=== PATIENT | male | born 1965 | race Caucasian/White ===

== ENCOUNTER 2016-11-25 14:48 | Emergency (ER) | payer OTHER ==
[2016-11-25] MEDS ORDERED: METHYLPREDNISOLONE SOD SUCC/PF 40 MG/ML VIAL IM ONE (14:54)
[2016-11-25] MEDS ORDERED: ALBUTEROL SULFATE 2.5 MG/0.5 ML VIAL.NEB IH ONE ×2 (14:54→14:58)
[2016-11-25] MEDS ORDERED: METHYLPREDNISOLONE SOD SUCC/PF 40 MG/ML VIAL ONE (14:58)
--- NOTE | 2016-11-25 15:05 | ERNOTE ---
Medical Problem HPI - Narrative Date of Service: 11/25/16 - General Chief Complaint: General Assessment Source: patient Exam Limitations: no limitations - Immun/Allergies/Home Medications Immunizations: IMMUNIZATION HX Immunizations Up to Date Yes History of Influenza Vaccine No Hx Pneumococcal Vaccination No Allergies/Adverse Reactions: Allergies No Known Allergies Allergy (Unverified 10/07/16 08:23) Home Medications: HOME MEDICATIONS Enalapril Maleate [Vasotec] 1 PO DAILY 07/19/16 [Last Taken Unknown] Hydrochlorothiazide [Hydrodiuril] 1 PO DAILY 07/19/16 [Last Taken Unknown] Ibuprofen 10/07/16 [Last Taken Unknown] Albuterol Sulfate [Proair Respiclick] 90 mcg IH QID PRN #1 aer.pow.ba 11/25/16 [ Last Taken Unknown] Albuterol Sulfate [Ventolin Hfa] 2 puff IH Q4H PRN #1 inhaler 11/25/16 [Last Taken Unknown] predniSONE [Prednisone] 3 tab PO DAILY #9 tab 11/25/16 [Last Taken Unknown] - History of Present History Narrative: Pt. 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 Pt. denies any SOB, CP, NVD, eye pain, nasal irritation, or fever. Pt. denies any prehospital treatment but states that being out of the area has relieved some of the symptoms and he states he is improving. Pt. denies any exacerbation factors. Review of Systems - Review of Systems Constitutional: Present: no symptoms reported. Absent: recent illness, fever, chills, weakness, fatigue, malaise EYE: Present: no symptoms reported. Absent: eye pain, blurred vision, double vision, tearing ENT: Present: sore throat. Absent: nose pain, nose congestion, nasal drainage, throat swelling Respiratory: Present: no symptoms reported. Absent: shortness of breath, cough , wheezing Cardiology: Present: no symptoms reported. Absent: chest pain, palpitations, edema Gastrointestinal/Abdominal: Present: no symptoms reported. Absent: nausea, vomiting, diarrhea, abdominal pain Genitourinary: Present: no symptoms reported. Absent: pain, dysuria, decreased urinary output Musculoskeletal: Present: no symptoms reported. Absent: back pain, joint pain Skin: Present: no symptoms reported. Absent: rash, change in color Neurological: Present: no symptoms reported. Absent: headache, dizziness/light- headedness, numbness, tingling All Other Systems: All systems neg except as marked - Patient's Past Medical History Patient History - Medical: No pertinent hx Patient History - Cardiac/Respiratory: CHF, Hypertension Patient History - Cancer: No Hx of Cancer Patient History - Surgical Procedures: Other Patient History - Other: None - Social History Living Situations: home Abuse History: No History of abuse Psych History: No pertinent hx Smoking Status: Former smoker Have you smoked in the past 12 months: No Do you dip or chew tobacco: No Patient requests Smoking Cessation Consult: No Initiate information on Smoking Cessation: No Alcohol Use: rarely Drug Use: none - Immunizations Immunizations Up to Date: Yes Hx Pneumococcal Vaccination: No History of Influenza Vaccine: No Physical Exam - Physical Exam General Appearance: Present: wd/wn, alert, no apparent distress Eye Exam: Normal inspection: bilateral, PERRL: bilateral, EOMI: bilateral Ears, Nose, Throat: Present: normal ENT inspection, hearing grossly normal, normal pharynx. Absent: nasal congestion, sinus pain/drainage, pharyngeal erythema, pharyngeal swelling Neck: Present: normal inspection, nontender. Absent: lymphadenopathy (R), lymphadenopathy (L) Respiratory: Present: no respiratory distress, normal breath sounds, no accessory muscle use, chest nontender, lungs clear. 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 Absent: pallor, skin rash ED Progress - Date and Time Seen: Date and Time: 11/25/16 16:11 Pt. states is 100 percent better Educated pt. on the need to return if symptoms worsen. Monitored pt. for 2 hours without any adverse affects. - Results and Orders Patient's Lab Results:: I have reviewed the patient's lab results. Results and Orders: pao2 slightly decreased. but as expected for chronic fibrotic changes in the lung - Vital Signs Patient's Vital Signs:: I have reviewed the patient's vital signs. Vital Signs: Vital Signs 11/25/16 14:52 Temperature 36.7 C Pulse Rate 89 Respiratory 18 Rate O2 Sat by Pulse 97 Oximetry - X-Ray X-Ray #1 X-Ray: chest Interpretation: Reviewed by me X-ray Comments: WNL X-Ray #2 X-Ray: soft tissue neck Interpretation: Reviewed by me X-ray Comments: no acute. - Progress/Reassessment Chief Complaint: General Assessment Departure - Departure Clinical Impression: Accidental exposure to bleach Disposition: Home self-care Condition: Good Instructions: Chemical Inhalation Injury Additional Instructions: Please return if the symptoms return or you get short of breath. Wear mask when at risk for exposure to bleach. Follow up with primary provider in 2-3 days. Referrals: Melania Alegre CNP [Primary Care Provider] - Prescriptions: Albuterol Sulfate [Ventolin Hfa] 2 puff IH Q4H PRN #1 inhaler PRN Reason: Shortness Of Breath Albuterol Sulfate [Proair Respiclick] 90 mcg IH QID PRN #1 aer.pow.ba PRN Reason: Cough predniSONE [Prednisone] 3 tab PO DAILY #9 tab
[2016-11-25 15:15] LABS: Hematocrit 44.8 % (42.0-52.0); Mean Cell Volume 90.5 fl (78-100); Mean Corpuscular Hemoglobin 30.3 pg (27-31); Mean Corpuscular Hgb Conc 33.5 g/dl (32-36); Neutrophil # 6.1 K/mm3 (1.3-6.0); Platelet Count 264 K/mm3 (150-450); Red Blood Count 4.95 M/mm3 (4.7-6.0); Red Cell Distribution Width 12.4 % (11.5-14.0); White Blood Count 9.8 K/mm3 (4.0-10.5)
[2016-11-25 15:28] LABS: Albumin * 4.2 gm/dl (3.4-5.0); Anion Gap 13.5 mmol/L (6.8-13.8); BUN/Creatinine Ratio 14.4 (9.0-21.6); Bilirubin, Total 0.5 mg/dL (0.0-1.1); Ca. Corrected For Albumin 8.4 mg/dL (8.4-10.2); Calcium * 8.9 mg/dL (7.9-10.9); Carbon Dioxide 25.3 mmol/L (24-32.6); Potassium 3.8 mmol/L (3.4-4.6); Total Protein 8.2 gm/dL (6.2-8.2)
[2016-11-25 21:18] VITALS: BP 139/93
== END 2016-11-25 16:25 | disposition home or self-care (01) ==
LOC: ER 14:48
DX: Z57.5 Occupational exposure to toxic agents in other industries (principal); T54.91XA Toxic effect of unspecified corrosive substance, accidental (unintentional), initial encounter; Y92.63 Factory as the place of occurrence of the external cause

== ENCOUNTER 2016-11-27 00:46 | Observation (INO) | payer OTHER ==
[2016-11-27] MEDS ORDERED: ALBUTEROL SULFATE/IPRATROPIUM 3 ML NEBU IH ONE ×4 (00:54→01:17)
[2016-11-27] MEDS ORDERED: METHYLPREDNISOLONE SOD SUCC/PF 125 MG/2 ML VIAL IM ONE (00:55)
[2016-11-27] MEDS ORDERED: METHYLPREDNISOLONE SOD SUCC/PF 125 MG/2 ML VIAL ONE (01:00)
--- NOTE | 2016-11-27 01:04 | ERNOTE ---
Dyspnea - Date Date of Service: 11/27/16 - General Presenting Symptoms: difficulty of breathing Time Seen by Provider: 11/27/16 00:54 Source: patient Exam Limitations: no limitations - Immun/Allergies/Home Medications Immunizations: IMMUNIZATION HX Immunizations Up to Date Yes History of Influenza Vaccine No Hx Pneumococcal Vaccination No Allergies/Adverse Reactions: Allergies No Known Allergies Allergy (Unverified 10/07/16 08:23) Home Medications: HOME MEDICATIONS Enalapril Maleate [Vasotec] 1 PO DAILY 07/19/16 [Last Taken Unknown] Hydrochlorothiazide [Hydrodiuril] 1 PO DAILY 07/19/16 [Last Taken Unknown] Ibuprofen 10/07/16 [Last Taken Unknown] Albuterol Sulfate [Proair Respiclick] 90 mcg IH QID PRN #1 aer.pow.ba 11/25/16 [ Last Taken Unknown] Albuterol Sulfate [Ventolin Hfa] 2 puff IH Q4H PRN #1 inhaler 11/25/16 [Last Taken Unknown] predniSONE [Prednisone] 3 tab PO DAILY #9 tab 11/25/16 [Last Taken Unknown] - History of Present Illness Narrative: Patient was seen yesterday due to an exposure to liquid chlorine fumes. Patient was in an enclosed room for a prolonged period of time. Patient reported that he started coughing and having SOB. Patient was given Tx and was allow to go home. Patient today returns due to same problem. Patient reported that he failed to fill his prescription of inhaler as recommended due the side effect with his blood pressure. 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 Denies: upper resp illness, out of meds, sports/exercise, allergy to food, allergy to environment, allergy to unknown, emotionally upset Modifying Factors - (Improves): Reports: oxygen Modifying Factors (Worsens): Reports: nothing Associated Symptoms-Dyspnea: Reports: cough. Denies: fever/chills, sweating, chest pain/discomfort, palpitations, leg/calf pain, ankle/leg swelling, dizziness, lightheadedness, weakness, anxiety, tingling of hands/face, muscle spasms, loss of appetite Prior Treatment: Reports: recently seen - patient was seen yesterday for same problem. Review of Systems - Review of Systems Constitutional: Absent: fever, chills, diaphoresis, weakness, fatigue, malaise, weight loss, fussy, decreased activity level EYE: Present: no symptoms reported ENT: Present: no symptoms reported Respiratory: Present: shortness of breath, cough. Absent: stridor Cardiology: Present: no symptoms reported Gastrointestinal/Abdominal: Present: no symptoms reported Genitourinary: Present: no symptoms reported Musculoskeletal: Present: no symptoms reported Skin: Present: no symptoms reported Neurological: Present: no symptoms reported Endocrine: Present: no symptoms reported Hematologic/Lymphatic: Present: no symptoms reported Psych: Present: no symptoms reported All Other Systems: All systems neg except as marked - Patient's Past Medical History Patient History - Medical: No pertinent hx Patient History - Cardiac/Respiratory: CHF, Hypertension Patient History - Cancer: No Hx of Cancer Patient History - Surgical Procedures: Other Patient History - Other: None - Social History Living Situations: home Abuse History: No History of abuse Psych History: No pertinent hx Alcohol Use: rarely Drug Use: none - Immunizations Immunizations Up to Date: Yes Hx Pneumococcal Vaccination: No History of Influenza Vaccine: No Physical Exam - Physical Exam General Appearance: Present: wd/wn, alert, no apparent distress, obese Eye Exam: Normal inspection: bilateral, PERRL: bilateral, EOMI: bilateral Ears, Nose, Throat: Present: normal ENT inspection, hearing grossly normal, pharyngeal erythema, pharyngeal swelling Neck: Present: normal inspection, nontender Respiratory: Present: respiratory distress - mild, expiration (prolonged). Absent: chest tenderness, crackles, rales, rhonchi Cardiovascular/Chest: Present: regular rate, rhythm, no murmur, normal peripheral pulses Gastrointestinal/Abdominal: Present: normal bowel sounds, nontender, nondistended, soft, no organomegaly Back Exam: Present: normal inspection, normal range of motion, no CVA tenderness , no vertebral tenderness Extremity Exam: Present: normal inspection, non-tender, no edema, normal range of motion Neurological Exam: Present: alert, oriented, normal mood/affect, no motor/ sensory deficits Skin Exam: Present: normal color, warm/dry Lymphatic Exam: Present: no adenopathy ED Progress - Date and Time Seen: Date and Time: 11/27/16 01:29 Patient who did not follow medical treatment recommendation and comes due to SOB and Coughing. Patient found with and a Respiratory Alkalosis withe a Non AG Metabolic Acidosis. Patient will be place in hospital for observation and management of condition. 11/27/16 01:44 Case has been informed to Hospitalist KURTIS Hinojosa. - Results and Orders Patient's Lab Results:: I have reviewed the patient's lab results. Results and Orders: ABG: Respiratory Alkalosis with compensatory Metabolic Acidosis Respiratory Panel: Noticed - Vital Signs Patient's Vital Signs:: I have reviewed the patient's vital signs. Vital Signs: O2 Sat: 97% at RA HR: 108 - Sinus on monitor RR: 26 BP: Mild elevated on arrival. - X-Ray X-Ray #1 X-Ray: chest Interpretation: Interp. by me X-ray Comments: Increase markening of lung tissue, air trapping, no consolidates - Progress/Reassessment Progress:: Unchanged - Transfer of Care Expected Disposition: Admit Departure Clinical Impression: Pneumonitis due to fumes and vapors - Departure Disposition: [facility] Condition: Fair
[2016-11-27] MEDS ORDERED: NORMAL SALINE 2,000 ML IV ONE (01:46)
[2016-11-27] MEDS ORDERED: CODEINE PHOSPHATE/GUAIFENESIN 5 ML UDC PO ONE (01:49)
[2016-11-27] MEDS ORDERED: CODEINE PHOSPHATE/GUAIFENESIN 5 ML UDC ONE (01:51)
[2016-11-27] MEDS ORDERED: guaiFENesin/DEXTROMETHORPHAN 118 ML BTL PO PRN (03:10)
--- NOTE | 2016-11-27 03:40 | HP ---
<Bonnie Quiroz - Last Filed: 11/27/16 07:25> Chief Complaint - Chief Complaint Date of Service: 11/27/16 Time of Service: 03:12 Chief Complaint: 'SOB". Source of HPI- Pt; reliable, ER provider report. History of Present Illness: Mr. West is a 51-yr-old WM pt who has no pertinent medical history except for HTN. He presented to the [facility] ER on 11/25/16 with complaints of exposure to Chlorine gas/fumes at his place of employment. 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 He received treatment at the ER with Bronchodialator nebulized treatment and was under observation for roughly 2 hrs. His CXR did not have any acute findings and v.s remained stable. He felt better after treatment in the ER and he was discharged home on Albuterol neb treatments, an inhaler & Prednisone. Pt admits that he never filed the prescriptions as he was afraid of the effects of the nebulizer treatments he had at the ED. He reports having increasing shakiness and heart palpitations and therefore, was reluctant to continue with treatment. On the night of 11/26/16, he came back to the ED with the same complaints he had on 11/25/16 of increasing SOB and coughing. Even though there was no POX desaturations, he felt SOB and the treatment in ER with Albuterol did not improve his Dyspnea. The CXR obtained did not have acute findings. The ABGs showed Acute Compensated Respiratory Alcalosis. At the time of physical examination, pt is visibly SOB, is coughing constantly and is noted to have a hoarse voice. Pt will be admitted under observation status to ensure he does not suffer further airway limitation. - Patient's Past Medical History Patient History - Medical: No pertinent hx Patient History - Cardiac/Respiratory: Hypertension Patient History - Cancer: No Hx of Cancer Patient History - Surgical Procedures: Other Patient History - Other: None - Family History Mother Family History - Medical: No pertinent hx Family History - Cardiac/Respiratory: COPD Family History - Cancer: No pertinent family hx Father Family History - Medical: Family History - Cardiac/Respiratory: No pertinent hx Family History - Cancer: No pertinent family hx - Social History Living Situations: significant other Abuse History: No History of abuse Psych History: No pertinent hx Smoking Status: Never smoker Have you smoked in the past 12 months: No Do you dip or chew tobacco: Yes Alcohol Use: occasionally Drug Use: none - Immunizations Immunizations Up to Date: Yes Hx Pneumococcal Vaccination: No History of Influenza Vaccine: No Review Of Systems (GEN) - Review of Systems Generalized/Overall Review: Absent: Weakness, Chills, Fever, Malaise, Diaphoresis EENTM: Absent: Eye Pain, Blurred Vision, Tearing, Double Vision, Nose Congestion , Throat Pain Respiratory: Present: Cough, Shortness of Breath. Absent: Wheezing Cardiac: Absent: Chest Pain, Edema, Palpitations Abdominal: Absent: Nausea, Vomiting, Abdominal Pain, Constipation Genitourinary: Absent: Burning, Itching, Urgency, Hesitancy, Dribbling, Incontinent Musculoskeletal: Absent: Joint Pain, Back Pain, Muscle Pain, Neck Pain Neurological: Absent: Headache, Anxiety, Depressed, Emotional Problems Skin: Absent: Dryness, Lesions Endocrine: Absent: Intolerance to Cold, Intolerance to Heat, Increased Thirst Misc: All systems neg except as marked Immunizations: IMMUNIZATION HX Immunizations Up to Date Yes History of Influenza Vaccine No Hx Pneumococcal Vaccination No Allergies/Adverse Reactions: Allergies Allergy/AdvReac Type Severity Reaction Status Date / Time No Known Allergies Allergy Verified 11/27/16 02:56 Home Medications: HOME MEDICATIONS Enalapril Maleate [Vasotec] 30 mg PO DAILY 07/19/16 [Last Taken Unknown] Hydrochlorothiazide [Hydrodiuril] 1 tab PO DAILY 07/19/16 [Last Taken Unknown] Exam - Exam Vital Signs: Vital Signs - Last Taken Temp 36.4 C L 11/27/16 02:37 Pulse 94 11/27/16 02:37 Resp 16 11/27/16 02:37 BP 134/77 11/27/16 02:37 Pulse Ox 97 11/27/16 02:37 Constitutional: Present: Alert, Oriented x3, Mild distress ENT Exam: Present: normal ENT inspection, hearing grossly normal, muffled/ hoarse voice, dry mucous membranes. Absent: nasal congestion, nasal drainage Eye Exam: bilateral eye: normal inspection, PERRL Neck: Present: full range of motion, supple, normal inspection Back Exam: Present: normal inspection Breasts: Present: Exam deferred Respiratory: Present: decreased breath sounds, accessory muscle use, No wheezing Cardiovascular/Chest: Present: no murmur, tachycardia Abdomen: Present: Normal bowel sounds, soft, nontender /Rectal: Present: Exam deferred Extremity: Present: normal range of motion, non-tender, normal inspection, no pedal edema Skin Exam: Present: other - Flushed Lymphatic: Present: no adenopathy Neurologic: Present: no motor/sensory deficits, alert, oriented x 3 Appearance: Present: appropriate appearance, appropriate insight Eye contact: Present: cooperative, good eye contact, normal speech Thoughts: Present: normal thought pattern, no apparent hallucination Diagnostic Studies: Laboratory Results pCO2 32.2 mmHg (35.0-48.0) L 11/27/16 01:05 pO2 72.3 mmHg (83.0-108.0) L 11/27/16 01:05 HCO3 20.1 mmol/L (21.0-28.0) L 11/27/16 01:05 Total CO2 21.1 mmol/L (19.0-24.0) 11/27/16 01:05 Base Excess -3.4 mmol/L (-2.0-3.0) L 11/27/16 01:05 ABG pH 7.41 (7.35-7.45) 11/27/16 01:05 ABG O2 Sat (Measured) 94.9 % (94.0-98.0) 11/27/16 01:05 Chlamy pneumoniae PCR Not detected (NotDetected) 11/27/16 01:07 Adenovirus (PCR) Not detected (NotDetected) 11/27/16 01:07 B. pertussis DNA (PCR) Not detected (NotDetected) 11/27/16 01:07 Coronavirus OC43 (PCR) Not detected (NotDetected) 11/27/16 01:07 Coronavirus HKU1 (PCR) Not detected (NotDetected) 11/27/16 01:07 Coronavirus 229E (PCR) Not detected (NotDetected) 11/27/16 01:07 Coronavirus NL63 (PCR) Not detected (NotDetected) 11/27/16 01:07 Human Metapneumovirus Not detected (NotDetected) 11/27/16 01:07 Influenza A (H1) PCR Not detected (NotDetected) 11/27/16 01:07 Influenza A (H1N1) PCR Not detected (NotDetected) 11/27/16 01:07 Influenza A (H3) PCR Not detected (NotDetected) 11/27/16 01:07 Influenza B (RT-PCR) Not detected (NotDetected) 11/27/16 01:07 M. pneumoniae (PCR) Not detected (NotDetected) 11/27/16 01:07 Parainfluenza 1 (PCR) Not detected (NotDetected) 11/27/16 01:07 Parainfluenza 2 (PCR) Not detected (NotDetected) 11/27/16 01:07 Parainfluenza 3 (PCR) Not detected (NotDetected) 11/27/16 01:07 Parainfluenza 4 (PCR) Not detected (NotDetected) 11/27/16 01:07 RSV (PCR) Not detected (NotDetected) 11/27/16 01:07 Rhinovirus (PCR) Not detected (NotDetected) 11/27/16 01:07 Assessment/Plan - Assessment/Plan (1) Exposure to chemical inhalation Assessment: Mr. west reported that he had an exposure to Chlorine inhalation on while at work. He presented to the ER with SOB & Coughing. The ABG obtained on 11/24/16 showed Acute compensated Respiratory Alcalosis. The CXR obtained on did not have any evidence of parenchymal injury. There was no desaturation of POX levels. He was discharged home on Albutetol treatments. He came back on 11/27/16 with complaints of SOB & Worsening cough. He admitted to not filling up his medications as advised from previous ER visit. The ABGs were obtained and the findings were unchanged from the results on 11/24/16. No acute findings on CXR. He received treatment at the ED and he did not feel any better. He appeared dyspneic at the time of physical examination. He was also constantly coughing and was noted to have a hoarse voice. It was best to admit him under observation to ensure that he could not deteriorate further due to limitation of his airway. Supportive management of the airway/respiratory systems is recommended regardless of toxic etiology and involves treatment with bronchodilators- will utilize Levabutrol nebs due to pt's tachycardia/ palpitations, promoting lung aeration by encouraging pt to cough and deep breath - Will provide IS to aid in this & offer prn antitussives. Problem: Acute (2) Alcohol use Assessment: Pt reports denies drinking alcohol, however during exam, he is noted to have ETOH odour. Will monitor for ETOH withdrawal. Problem: Acute (3) HTN (hypertension) Assessment: Stable- continue Enapril and HCTZ. Problem: Chronic QualifierTitle: Hypertension type: essential hypertension Qualified Code( s): I10 - Essential (primary) hypertension <Donato Sepulveda - Last Filed: 11/27/16 11:27> Immunizations: IMMUNIZATION HX Immunizations Up to Date Yes History of Influenza Vaccine No Hx Pneumococcal Vaccination No Exam - Exam Vital Signs: Vital Signs - Last Taken Temp 36.8 C 11/27/16 10:20 Pulse 96 11/27/16 10:34 Resp 20 11/27/16 10:34 BP 125/77 11/27/16 10:20 Pulse Ox 97 11/27/16 10:34 Diagnostic Studies: Abnormal Lab Results 11/27/16 Range/Units 03:10 Ethyl Alcohol 116.0 H (0.0-10.0) mg/dL Laboratory Results pCO2 32.2 mmHg (35.0-48.0) L 11/27/16 01:05 pO2 72.3 mmHg (83.0-108.0) L 11/27/16 01:05 HCO3 20.1 mmol/L (21.0-28.0) L 11/27/16 01:05 Total CO2 21.1 mmol/L (19.0-24.0) 11/27/16 01:05 Base Excess -3.4 mmol/L (-2.0-3.0) L 11/27/16 01:05 ABG pH 7.41 (7.35-7.45) 11/27/16 01:05 ABG O2 Sat (Measured) 94.9 % (94.0-98.0) 11/27/16 01:05 Ethyl Alcohol 116.0 mg/dL (0.0-10.0) H 11/27/16 03:10 Chlamy pneumoniae PCR Not detected (NotDetected) 11/27/16 01:07 Adenovirus (PCR) Not detected (NotDetected) 11/27/16 01:07 B. pertussis DNA (PCR) Not detected (NotDetected) 11/27/16 01:07 Coronavirus OC43 (PCR) Not detected (NotDetected) 11/27/16 01:07 Coronavirus HKU1 (PCR) Not detected (NotDetected) 11/27/16 01:07 Coronavirus 229E (PCR) Not detected (NotDetected) 11/27/16 01:07 Coronavirus NL63 (PCR) Not detected (NotDetected) 11/27/16 01:07 Human Metapneumovirus Not detected (NotDetected) 11/27/16 01:07 Influenza A (H1) PCR Not detected (NotDetected) 11/27/16 01:07 Influenza A (H1N1) PCR Not detected (NotDetected) 11/27/16 01:07 Influenza A (H3) PCR Not detected (NotDetected) 11/27/16 01:07 Influenza B (RT-PCR) Not detected (NotDetected) 11/27/16 01:07 M. pneumoniae (PCR) Not detected (NotDetected) 11/27/16 01:07 Parainfluenza 1 (PCR) Not detected (NotDetected) 11/27/16 01:07 Parainfluenza 2 (PCR) Not detected (NotDetected) 11/27/16 01:07 Parainfluenza 3 (PCR) Not detected (NotDetected) 11/27/16 01:07 Parainfluenza 4 (PCR) Not detected (NotDetected) 11/27/16 01:07 RSV (PCR) Not detected (NotDetected) 11/27/16 01:07 Rhinovirus (PCR) Not detected (NotDetected) 11/27/16 01:07 Assessment/Plan - Narrative Narrative: Record reviewed. Patient examined. I directed all of [facility]'s care for this patient. In addition to her documentation, his blood alcohol level was elevated. I suspect that his prognosis is excellent.
[2016-11-27] MEDS: LEVALBUTEROL HCL 1.25 MG/3 ML AMPUL IH SCH ×3 (04:02→10:34)
[2016-11-27] MEDS ORDERED: ENALAPRIL MALEATE 20 MG TABLET PO SCH (09:00)
[2016-11-27] MEDS ORDERED: ENALAPRIL MALEATE PO SCH ×2 (09:00)
[2016-11-27] MEDS ORDERED: HYDROCHLOROTHIAZIDE 25 MG TABLET PO SCH (09:00)
[2016-11-27 10:21] VITALS: BP 125/77
--- NOTE | 2016-11-27 11:57 | DS ---
Description of Stay: Had been coughing so severely yesterday, he was almost vomiting. Today not that hard, but still coughing often. 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 He can't tell if the nebulized bronchodilator here helps or not, but it does make him tremulous. His family member, an RN, would like him to have an inhaler "just in case" so he wouldn't have to return here if he needs one. I advised we would do that, but that he should use it only for perceived wheezing, and although he is coughing, his lungs are crystal clear at the present time. Procedures Performed: none Discharge Disposition: Home self care Disposition: Home self-care Condition: Good Discharge Activity: Activity as tolerated Discharge Diet: General/regular food Problem Oriented Discharge Instructions to Patient/Family: Acute Bronchitis, Form - Excuse from Work, School, or Physical Activity Additional Patient Instructions (free text): Followup with occupational health clinic in 2-3 days. Prescriptions (Any new or edited meds): HYDROcodone/ACETAMINOPHEN [[place] 5-325] 1 - 2 tab PO QID PRN #30 tab PRN Reason: Cough Levalbuterol Tartrate [Xopenex Hfa] 2 puff IH Q6H PRN #1 inhaler PRN Reason: Wheezing predniSONE [Prednisone] 3 tab PO BID #30 tab Complete Home Medications List: Complete Home Medication List: Enalapril Maleate [Vasotec] 30 mg PO DAILY 07/19/16 Hydrochlorothiazide [Hydrodiuril] 1 tab PO DAILY 07/19/16 HYDROcodone/ACETAMINOPHEN [[place] 5-325] 1 - 2 tab PO QID PRN #30 tab 11/27/16 Levalbuterol Tartrate [Xopenex Hfa] 2 puff IH Q6H PRN #1 inhaler 11/27/16 predniSONE [Prednisone] 3 tab PO BID #30 tab 11/27/16
== END 2016-11-27 13:15 | disposition home or self-care (01) ==
LOC: ER 00:46 → MS 02:01
PROVIDERS: ADMIT Nurse Practitioner; ATTEND Allergy & Immunology
DX: T54.3X1A Toxic effect of corrosive alkalis and alkali-like substances, accidental (unintentional), initial encounter (principal); R05 Cough; Y92.63 Factory as the place of occurrence of the external cause; R06.02 Shortness of breath; Z72.89 Other problems related to lifestyle; I10 Essential (primary) hypertension
CPT/HCPCS: 36415; 36600; 71020; 82803; 87633; 94640; 96372; 99284; G0378; G0481